=== PATIENT | female | born 1985 | race Caucasian/White ===

== ENCOUNTER 2019-03-09 05:00 | Inpatient (IN) | payer OTHER ==
[2019-03-09 06:28] LABS: BASO % 0.2 % (0-2.0); EOS % 2.1 % (0-4.5); HEMATOCRIT 32.8 % (32.4-45.2); HEMOGLOBIN 10.8 GM/dL (10.7-15.3); LYMPH % 22.7 % (8-40); MCH 25.3 pg (25.7-33.7); MCHC 33.1 g/dl (32.0-36.0); MEAN CELL VOLUME 76.6 fl (80-96); MONO % 6.9 % (3.8-10.2); NEUT % 68.1 % (42.8-82.8); PLATELET COUNT 278 K/MM3 (134-434); RBC 4.27 M/mm3 (3.60-5.2); RDW 15.5 % (11.6-15.6); WHITE BLOOD COUNT 9.4 K/mm3 (4.0-10.0)
[2019-03-09 06:34] VITALS: BMI 35.6
[2019-03-09 06:35] LABS: INR 0.92 (0.83-1.09); PROTHROMBIN TIME (PATIENT) 10.9 SEC (9.7-13.0)
[2019-03-09 06:38] LABS: ACTIVATED PTT 30.3 SECONDS (25.2-36.5)
[2019-03-09 07:02] LABS: BLOOD UREA NITROGEN 9.8 mg/dL (7-18); CALCIUM 8.4 mg/dL (8.5-10.1); CREATININE 0.4 mg/dL (0.55-1.3); POTASSIUM 4.1 mmol/L (3.5-5.1)
--- NOTE | 2019-03-09 08:08 | PN ---
Ante-Partal Exam - Subjective Subjective: Patient presenting with reports of mild spotting consistent with mucus plug. She denies LOF, and reports +FM and irregular contractions q 20mins. Patient reports that she stopped at [facility] L&D to make sure "everything was ok" since she has plan to see her OB tomorrow. Vital Signs: Vital Signs Temperature 98.1 F 03/09/19 06:00 Pulse Rate 87 03/09/19 07:00 Respiratory Rate 20 03/09/19 07:00 Blood Pressure 127/69 03/09/19 07:00 O2 Sat by Pulse Oximetry (%) Bleeding: No Headache: No Visual changes: No Right upper quadrant pain: No - Contractions Contractions: Yes Regularity: Irregular Intensity: Mild Monitor Mode: External - Exam during Labor Heart Rate: 125 Variability: Moderate Category: I Monitor Accelerations: Present Monitor Decelerations: None Exam: Vaginal Dilatation (cm): 1.5 Effacement (%): 30 Amniotic Membrane Status: Intact Presentation: Vertex Station: -3 Remarks: bedside sono performed: cephalic presentation, +FM, Amniotic fluid subjectively noted Labs reviewed - Assessment/Plan Assessment/Plan: Patient is a 33 y/o P2103 @ 41.1 wks by 09/10/18 sono at 15.3wks and JORGE of presenting for mucus plug/spotting, external patient. She reports being given a due date of 03/10/19 by her "MFM/Dynamite Packing Machine Feeder" as per patient. She reports coming to [facility] L&D fto "make sure everything was fine as she has been contraction for 2 weeks on and off." Patient was extensively monitored and evaluated in L&D. No cervical change noted and no active bleeding on exam, FHT is reassuring. Sono from 12/31/18 reviewed and WNL, along with all the available documentation brought by her. She reports undergoing a ultrasound evaluation on Sunday03/07/19 and "EFW 8lbs and fluid level normal." Patient reports follow up with OB attending tomorrow. Late 3rd trimester documentation is missing including sonos and labs. Available documentation is consistent with a uncomplicated . Patient was counseled at bedside regarding late term and induction of labor. Their respective risks and complications explained and she expressed understanding. Patient was offered induction of labor. Patient declined induction of labor as she desires to continue plan as formulated with her OB. Risks and complications of continuing late term stressed. She expressed understanding. Patient was instructed to present to her corresponding L&D following discharge in order to ensure continuity of care and appropriate care. Full antepartum/Labor precautions discussed. Patient expressed understanding and agreement. -D/C -Follow up at L&D in [place] in order to undergo evaluation and delivery decision making with personal OBGYN -return PRN
[2019-03-09] MEDS: ELECTROLYTE-148 SOLN 1,000 ML IV SCH (20:00)
--- NOTE | 2019-03-09 20:21 | HP ---
Past Medical History - Primary Care Physician PCP:: Kei Burgess - Admission Chief Complaint: Labor History of Present Illness: External patient returning after discharge early today. Presenting now in labor after evaluation at her corresponding hospital. History Source: Patient Limitations to Obtaining History: No Limitations - Past Medical History LENO SEWER: No: Alzheimer's, CVA, Dementia, Migraine, Multiple Sclerosis, Peripheral Neuropathy, Parkinson's, Seizure, Syncope, TIA, Vertigo, Other Cardiovascular: No: AFIB, Aneurysm, Aortic Insufficiency, Aortic Stenosis, CAD, CHF, Deep Vein Thrombosis, HTN, Hyperlipdemia, NC, Mitral Insufficiency, Mitral Stenosis, Murmur, Pulmonary Hypertension, Other Pulmonary: No: Asthma, Bronchitis, Cancer, COPD, O2 Dependent, Pneumonia, Previously Intubated, Pulmonary Embolus, Pulmonary Fibrosis, Sleep Apnea, Other Gastrointestinal: No: Ascites, Cancer, Constipation, Crohn's Disease, Diverticulitis, Diverticulosis, Esophageal Varices, Gastritis, GERD, GI Bleed, Hemorrhoids, Hiatal Hernia, Inflamatory Bowel Disease, Irritable Bowel Disease, Pancreatitis, Peptic Ulcer Disease, Ulcerative Colitis, Other Hepatobiliary: No: Cirrhosis, Cholelithiasis, Cholecystitis, Choledocholithiasis , Hepatitis A, Hepatitis B, Hepatitis C, Other Renal/: No: Renal Failure, Renal Inusuff, BPH, Cancer, Hematuria, Hemodialysis , Neurogenic Bladder, Renal Calculi, UTI, Other Reproductive: No: Ectopic , Endometriosis, Fibroids, PID, Polycystic Ovary Syndrome, Postmenopausal, Other ...: 5 ...Para: 3 ...Term: 1 ...: 1 ...Spon : 1 ...Induced : 0 ...Multiple Gestation: 0 ...EDC by Sono: 03/01/19 Heme/Onc: No: Anemia, B12 Deficiency, Bleeding Disorder, Cancer, Current Chemotherapy, Current Radiation Therapy, Hemochromatosis, Hypercoaguable State, Myeloproliferative Synd, Sickle Cell Disease, Sickle Cell Trait, Thrombocytopenia, Other Infectious Disease: No: AIDS, C-Diff, Herpes Zoster, HIV, MRSA, STD's, Tuberculosis, VREF, Other Psych: No: Addictions, Anxiety, Bipolar, Depression, Panic, Psychosis, Schizophrenia, Other Musculoskeletal: No: Bursitis, Chronic low back pain, Hemiparesis, Hemiplegia, Osteoarthritis, Paraplegia, Other Rheumatology: No: Fibromyalgia, Gout, Lupus, Rheumatoid Arthritis, Sarcoidosis, Vasculitis, Other ENT: No: Allergic Rhinitis, Sinusitis, Other Endocrine: No: Rugby's Disease, [place]'s Disease, Diabetes Insipidus, Diabetes Mellitus, Hyperparathyroidism, Hyperthyroidism, Hypothyroidism, Osteopenia, SIADH, Other Dermatology: No: Basal Cell, Cellulitis, Eczema, Melanoma, Psoriasis, Squamous Cell, Other - Past Surgical History Past Surgical History: No: None, AAA Repair, AICD, Amputation, Appendectomy, Arthrosocopy, AV Fistula/Graft, Bariatric Surgery, Breast Biopsy, Bypass, CABG, Carotid Endarterectomy, Cataract Removal, Cholecystectomy, Colectomy, Colonoscopy, Colostomy, Craniotomy, , Cystectomy, Hernia Repair, Hysterectomy, Ileal Conduit, Ileosotomy, Joint Replacement, Kidney Transplant, Laminectomy, Liver Transplant, Mastectomy, Nephrectomy, Oopherectomy, Orchiectomy, Permanent Pacemaker, Prostatectomy, Splenectomy, Stent, Thoracotomy , TURP, Tonsillectomy, Tubal Ligation, Upper Endoscopy, Valve Replacement, Vasectomy, Vein Stripping/Ligation Hx Myomectomy: No Hx Transabdominal Cerclage: No - Smoking History Smoking history: Never smoked Have you smoked in the past 12 months: No - Alcohol/Substance Use Hx Alcohol Use: No Home Medications - Allergies Allergies/Adverse Reactions: Allergies Allergy/AdvReac Type Severity Reaction Status Date / Time No Known Allergies Allergy Verified 03/09/19 05:46 - Home Medications Home Medications: Ambulatory Orders Pnv No.95/Ferrous Fum/Folic AC [ Vitamin Tablet] 1 each PO DAILY Family Medical History Family History: Unremarkable Review of Systems Unable to obtain ROS, reason: labor pain - Review of Systems Constitutional: denies: No Symptoms, Chills, Diaphoresis, Fever, Lethargy, Loss of Appetite, Malaise, Night Sweats, Unintentional Wgt. Loss, Weakness, Other Eyes: denies: No Symptoms, Blind Spots, Blurred Vision, Double Vision, Eye Pain , Floaters, Photophobia, Recent Change in Vision, Other HENT: denies: No Symptoms, Difficult Swallowing, Ear Discharge, Ear Pain, Epistaxis, Gingival Bleeding, Hearing Loss, Mouth Swelling, Nasal Congestion, Ocular Prosthesis, Throat Pain, Toothache, Ringing in Ears, Other Neck: denies: No Symptoms, Decreased ROM, Lumps, Pain on Movement, Stiffness, Swollen Glands, Tenderness, Other Cardiovascular: denies: No Symptoms, Chest Pain, Edema, Palpitations, Shortness of Breath, Other Respiratory: denies: No Symptoms, Cough, Exercise Intolerance, Hemoptysis, Orthopnea, PND, Snoring, SOB, SOB on Exertion, Wheezing, Other Gastrointestinal: denies: No Symptoms, Abdominal Pain, Bloating, Constipation, Diarrhea, Dysphagia, Indigestion, Melena, Nausea, Rectal Bleeding, Vomiting, Vomiting Blood, Other Genitourinary: denies: No Symptoms, Burning, Discharge, Dysuria, Flank Pain, Frequency, Hematuria, Incontinence, Lesions, Menses, Pain, Testicular Mass, Testicular Pain, Testicular Swelling, Urgency, Vaginal Bleeding, Other Breasts: denies: No Symptoms Reported, See HPI, Breast Implants, Discharge from Nipple, Lumps, Pain, Skin Changes, Other Musculoskeletal: denies: No Symptoms, Back Pain, Crepitus, Decreased ROM, Extremity Pain, Joint Pain, Joint Swelling, Muscle Pain, Muscle Cramps, Muscle Weakness, Other Integumentary: denies: No Symptoms, Blister, Bruising, Change in Color, Eczema, Erythema, Incision, Lesions, Lump, Pallor, Pruritis, Rash, Wound, Other Neurological: denies: No Symptoms, Change in LOC, Change in Speech, Confusion, Dizziness, Headache, Incoordination, Numbness, Parasthesia, Pre-Existing Deficit , Seizure, Syncope, Tremors, Unsteady Gait, Weakness, Other Endocrine: denies: No Symptoms, Excessive Sweating, Flushing, Increased Hunger, Increased Thirst, Intolerance to Cold, Intolerance to Heat, Unexplained Weight Gain, Unexplained Weight Loss, Other Hematology/Lymphatic: denies: No Symptoms, Easily Bruised, Excessive Bleeding, Swollen Glands, Other Psychiatric: denies: No Symptoms, Altered Sleep Pattern, Anxiety, Depression, Hallucinations, Panic, Paranoia, Suicidal, Other Physical Exam - Maternity Vital Signs: Vital Signs Temperature 98.3 F 03/09/19 19:18 Pulse Rate 98 H 03/09/19 19:18 Respiratory Rate 20 03/09/19 19:18 Blood Pressure 128/74 03/09/19 19:18 O2 Sat by Pulse Oximetry (%) Constitutional: Yes: Well Nourished HENT: Yes: Atraumatic Neck: Yes: Supple Cardiovascular: Yes: Regular Rate and Rhythm Breast(s): Yes: Other (deferred) - Abdominal Exam/OB Number of Fetuses: Single Presentation: Vertex Contractions: Yes Regularity: Regular Intensity: Mod/Strong Monitor Mode: External Heart Rate (range): 135 Category: I Accelerations: Uniform Decelerations: None - Vaginal Exam/OB Vaginal Bleediing: No Speculum Exam: No Dilatation (cm): 4 Effacement (%): 60 Amniotic Membrane Status: Intact Presentation: Vertex/Position Station: -3 - Physical Exam Musculoskeletal: Yes: WNL Extremities: Yes: WNL Edema: Yes Integumentary: Yes: WNL Deep Tendon Reflex Grade: Normal +2 ...Motor Strength: WNL Psychiatric: Yes: WNL, Alert, Oriented - Labs Lab Results: CBC, BMP 03/09/19 06:05 03/09/19 06:05 Imaging - Results Ultrasound: Report Reviewed Assessment/Plan 33 y/o @ 41.1wks, active labor, external patient and partial records reviewed. No GBS available and uncomplicated with negative testing. Sono done today reviewed and all questions answered. Patient desires IV pain control. -Stadol -Expectant management -re-evaluate accordingly -GBS prophylaxis as per protocol.
[2019-03-09] MEDS ORDERED: AMPICILLIN - 2 GM in SODIUM CHLORIDE 100 ML IVPB ONE (20:34)
--- NOTE | 2019-03-09 22:01 | PN ---
Ante-Partal Exam - Subjective Subjective: Patient evaluated for progression of labor Vital Signs: Vital Signs Temperature 98.3 F 03/09/19 19:18 Pulse Rate 79 03/09/19 20:00 Respiratory Rate 18 03/09/19 20:00 Blood Pressure 122/77 03/09/19 20:00 O2 Sat by Pulse Oximetry (%) Bleeding: No Headache: No Visual changes: No Right upper quadrant pain: No - Contractions Contractions: Yes Regularity: Irregular Monitor Mode: External - Exam during Labor Heart Rate: 120 Variability: Moderate Category: I Monitor Accelerations: Absent Monitor Decelerations: None Exam: Vaginal Dilatation (cm): 5 Effacement (%): 70 Amniotic Membrane Status: Intact Presentation: Vertex (asynclitic) Station: -3 Remarks: internal digital rotation attempted - Assessment/Plan Assessment/Plan: re-evaluate in 1-2hrs and consider AROM and IUP placement
--- NOTE | 2019-03-09 23:31 | PN ---
Ante-Partal Exam - Subjective Subjective: Patient evaluated for pain and progression of labor Vital Signs: Vital Signs Temperature 98.3 F 03/09/19 19:44 Pulse Rate 79 03/09/19 20:00 Respiratory Rate 18 03/09/19 20:00 Blood Pressure 122/77 03/09/19 20:00 O2 Sat by Pulse Oximetry (%) Bleeding: Yes (moderate) Headache: No Visual changes: No Right upper quadrant pain: No - Contractions Contractions: Yes Regularity: Irregular (unable to trace appropriately) Intensity: Mod/Strong Monitor Mode: External - Exam during Labor Heart Rate: 125 Variability: Moderate Category: I Monitor Accelerations: Present Monitor Decelerations: None Exam: Vaginal (IUPC placed) Dilatation (cm): 5 Effacement (%): 60 Amniotic Membrane Status: Ruptured Amniotic Fluid: Blood Stained Presentation: Vertex Station: -3 Remarks: asynclitic - Assessment/Plan Assessment/Plan: 33 y/o P2103 @ 41.1wks, active labor, FHT reactive, /P AROM and IUPC in place. Desiring epidural -Epidural is OK -Re-evaluate accordingly
[2019-03-10] MEDS: AMPICILLIN - 1 GM in SODIUM CHLORIDE 100 ML IVPB SCH ×3 (00:35→19:26)
[2019-03-10] MEDS: FENTANYL/BUPIVACAINE/NS/PF - PCEA - 50 ML DISP.SYRIN EP SCH (00:40)
[2019-03-10] MEDS ORDERED: NALOXONE HCL 0.4 MG/ML VIAL IVPUSH PRN (01:09)
[2019-03-10] MEDS: OXYTOCIN 30 UNITS in 0.9% NS 30 UNIT/500 ML INFUS.BAG IVPB SCH (01:25)
[2019-03-10] MEDS ORDERED: BUTORPHANOL TARTRATE 1 MG/ML VIAL IVPB ONE (01:57)
--- NOTE | 2019-03-10 03:27 | PN ---
Ante-Partal Exam - Subjective Subjective: Patient evaluated for pain and pressure. Vital Signs: Vital Signs Temperature 98.1 F 03/10/19 02:00 Pulse Rate 80 03/10/19 01:40 Respiratory Rate 18 03/10/19 01:40 Blood Pressure 118/64 03/10/19 01:40 O2 Sat by Pulse Oximetry (%) 99 03/10/19 01:40 Bleeding: Yes (bloody show) Headache: No Visual changes: No Right upper quadrant pain: No - Contractions Contractions: Yes Regularity: Regular Intensity: Mild Monitor Mode: External - Exam during Labor Heart Rate: 150 Variability: Moderate Category: I (tracing non-continuous during psuhing trial) Monitor Accelerations: Present Monitor Decelerations: None Exam: Vaginal Dilatation (cm): 9.5 Effacement (%): 100 Station: 0 (asynclitic) - Assessment/Plan Assessment/Plan: Pasive descent D/C epidural Anticipate VD
[2019-03-10] MEDS ORDERED: WITCH HAZEL 50% (TUCKS) 40 PAD/JAR PAD TP PRN (04:36)
[2019-03-10] MEDS ORDERED: BENZOCAINE 28 GM HEMORRHOIDAL OINTMENT TP PRN (04:36)
[2019-03-10] MEDS ORDERED: BISACODYL 10 MG SUPP.RECT RC PRN (04:36)
[2019-03-10] MEDS ORDERED: BENZOCAINE 20% 57 GM BOTTLE TP PRN (04:36)
--- NOTE | 2019-03-10 04:36 | PN ---
Delivery - Delivery Type of Anesthesia: Epidural Episiotomy/Laceration: None EBL (cc): 300 Delivery, Single - Stages of Labor Placenta: Yes: Spontaneous - Condition of Infant Service Station Equipment Mechanic/Primary Care Pediatrician Present: No Infant Gender: Female Position: OA - Feeding Plan Initial Plan: Elected not to breastfeed exclusively throughout hospitalization Remarks - Remarks Remarks: Infant's head delivered with maternal expulsive efforts OA and restituted to NITESH. Tight nuchal cord x 1 reduced and shoulders delivered without difficulty. Cord clamped after delay and samples for gases and blood obtained. Placenta delivered spontaneously and intact, 3VC. Exam revealed no laceration and mild atony. Fundal massage and prophylactic misoprostol administered TX. Sponge/ instrument count correct x 2 and confirmed by nurse.
[2019-03-10] MEDS ORDERED: MISOPROSTOL 100 MCG TABLET PV ONE (04:38)
[2019-03-10] MEDS: IBUPROFEN 600 MG TABLET (FP) PO PRN ×2 (09:12→17:56)
[2019-03-10] MEDS: ACETAMINOPHEN 325 MG TABLET (FP) PO PRN ×2 (09:13→17:57)
[2019-03-11] MEDS: FENTANYL/BUPIVACAINE/NS/PF - PCEA - 50 ML DISP.SYRIN EP SCH (07:29)
[2019-03-11] MEDS: AMPICILLIN - 1 GM in SODIUM CHLORIDE 100 ML IVPB SCH (07:29)
[2019-03-11] MEDS: IBUPROFEN 600 MG TABLET (FP) PO PRN (08:19)
[2019-03-11] MEDS: ACETAMINOPHEN 325 MG TABLET (FP) PO PRN (08:19)
--- NOTE | 2019-03-11 09:02 | PN ---
Post Progress Note - Subjective Subjective: 33 yo Para 4 status post vaginal delivery, seen and evaluated. Doing well. Post Day: 1 Type of Delivery: Vital Signs: Vital Signs Temperature 98.3 F 03/10/19 21:00 Pulse Rate 70 03/10/19 21:00 Respiratory Rate 20 03/10/19 21:00 Blood Pressure 122/66 03/10/19 21:00 O2 Sat by Pulse Oximetry (%) 99 03/10/19 01:40 Breast Exam: Yes: Soft Uterus: Yes: Fundus Firm Abdomen/GI: Yes: Abdomen soft, Tolerating PO Lochia: Yes: Rubra Lochia, amount: Moderate Extremities: Yes: Calves non-tender Perineum: Yes: Intact Activity: Ambulating - Labs Labs: CBC WBC 9.4 K/mm3 (4.0-10.0) 03/09/19 06:05 RBC 4.27 M/mm3 (3.60-5.2) 03/09/19 06:05 Hgb 10.8 GM/dL (10.7-15.3) 03/09/19 06:05 Hct 32.8 % (32.4-45.2) 03/09/19 06:05 MCV 76.6 fl (80-96) L 03/09/19 06:05 MCH 25.3 pg (25.7-33.7) L 03/09/19 06:05 MCHC 33.1 g/dl (32.0-36.0) 03/09/19 06:05 RDW 15.5 % (11.6-15.6) 03/09/19 06:05 Plt Count 278 K/MM3 (134-434) 03/09/19 06:05 MPV 8.0 fl (7.5-11.1) 03/09/19 06:05 Absolute Neuts (auto) 6.4 K/mm3 (1.5-8.0) 03/09/19 06:05 Neutrophils % 68.1 % (42.8-82.8) 03/09/19 06:05 Lymphocytes % 22.7 % (8-40) 03/09/19 06:05 Monocytes % 6.9 % (3.8-10.2) 03/09/19 06:05 Eosinophils % 2.1 % (0-4.5) 03/09/19 06:05 Basophils % 0.2 % (0-2.0) 03/09/19 06:05 Nucleated RBC % 0 % (0-0) 03/09/19 06:05 Problem List - Problems (1) Status post normal vaginal delivery Problems reviewed: Yes Code(s): [id number] - Assessment/Plan Status post vaginal delivery Stable Continue routine care
[2019-03-11 09:14] LABS: BASO % 0.2 % (0-2.0); EOS % 3.2 % (0-4.5); HEMATOCRIT 31.3 % (32.4-45.2); HEMOGLOBIN 10.4 GM/dL (10.7-15.3); LYMPH % 19.1 % (8-40); MCH 25.4 pg (25.7-33.7); MCHC 33.1 g/dl (32.0-36.0); MEAN CELL VOLUME 76.6 fl (80-96); MEAN PLT VOLUME 7.7 fl (7.5-11.1); MONO % 5.3 % (3.8-10.2); NEUT % 72.2 % (42.8-82.8); PLATELET COUNT 277 K/MM3 (134-434); RBC 4.09 M/mm3 (3.60-5.2); RDW 16.1 % (11.6-15.6); WHITE BLOOD COUNT 9.8 K/mm3 (4.0-10.0)
[2019-03-11] MEDS ORDERED: diphenhydrAMINE HCL 25 MG CAPSULE (FP) PO ONE (18:30)
[2019-03-11] MEDS: OXYTOCIN 20 UNITS in 0.9% NS 20 UNIT/1,000 ML INFUS.BAG IV SCH (19:40)
[2019-03-11] MEDS: ELECTROLYTE-148 SOLN 1,000 ML IV SCH (19:41)
[2019-03-11] MEDS: OXYTOCIN 30 UNITS in 0.9% NS 30 UNIT/500 ML INFUS.BAG IVPB SCH (19:41)
[2019-03-11] MEDS ORDERED: SENNOSIDES/DOCUSATE COMBO (SENNA PLUS) TABLET (UD) PO PRN (22:00)
--- NOTE | 2019-03-12 06:08 | DS ---
Physical Exam-TUB PULLER Vital Signs: Vital Signs Temperature 98.5 F 03/11/19 20:39 Pulse Rate 68 03/11/19 20:39 Respiratory Rate 20 03/11/19 20:39 Blood Pressure 117/73 03/11/19 20:39 O2 Sat by Pulse Oximetry (%) 99 03/10/19 01:40 Constitutional: Yes: Well Nourished, Other (c/o rash on her body , erythema around her chest abdomen & lfront of thighs . less than last evenning seen by me . still present itching less) Eyes: Yes: WNL HENT: Yes: WNL Neck: Yes: WNL Cardiovascular: Yes: WNL Respiratory: Yes: WNL Gastrointestinal: Yes: WNL Renal/: Yes: WNL ....Post : Yes: Uterus firm, Uterus non-tender, Moderate lochia rubra ( perineum intact) Breast(s): Yes: WNL (breast not engorged breast & bottle feeding) Musculoskeletal: Yes: WNL Extremities: Yes: WNL. No: Calf Tenderness Edema: LLE: Trace, RLE: Trace Integumentary: Yes: Erythema (skin) Neurological: Yes: WNL ...Motor Strength: WNL Psychiatric: Yes: WNL, Alert, Oriented Labs: CBC, BMP 03/11/19 08:48 03/09/19 06:05 Delivery - Delivery Type of Anesthesia: Epidural Episiotomy/Laceration: None EBL (cc): 300 Delivery, Single - Stages of Labor Date 1st Stage Initiatied: 03/09/19 Time 1st Stage Initiated: 20:00 Date 2nd Stage Initiated: 03/10/19 Time 2nd Stage Initiated: 03:45 Date of Delivery: 03/10/19 Time of Delivery: 04:11 Time Placenta Delivered: 04:15 Placenta: Yes: Spontaneous - Condition of Kiln Fireman/Signals Officer Present: No Infant Gender: Female Weight: 7 lb 2 oz Position: OA Total Hours ROM (Hrs/Mins): 6H46m - 1 Minute Total Score: 9 5 Minutes Total Score: 9 - Feeding Plan Initial Plan: Elected not to breastfeed exclusively throughout hospitalization Remarks - Remarks Remarks: ppd #2 stable skin rash complained last evening to nurse, unable to find cause . pt has taken tylenol, or motrin & penicillin in past since pain scale 3-4/10 for cramps i recommended avoid all medicines Benadryl 50 mg po given last night , will repeat 25 mg po one more dose in AM pt is instructed if rash still persistent , she can take po clartin otc once a day prn discharge today Discharge Summary Problems reviewed: Yes Reason For Visit: LABOR Current Active Problems Status post normal vaginal delivery (Acute) Procedures: Principal: Hospital Course: allergic reaction , cause unknown Health Concerns: none Plan of Treatment: as directed Goals: maternal & well being Condition: Stable - Instructions Diet, Activity, Other Instructions: DISCHARGED TO [facility]. GO DIRECTLY TO [facility] NOW TO BE EVALUATED BY YOUR PROVIDER FOR INDUCTION OF LABOR OR DISCHARGE. IF YOU HAVE ANY QUESTIONS ABOUT YOUR EVALUATION AT THIS HOSPITAL, CALL [phone] Referrals: Kei Burgess MD [Staff Physician] - Disposition: HOME - Home Medications Comprehensive Discharge Medication List: Ambulatory Orders Pnv No.95/Ferrous Fum/Folic AC [ Vitamin Tablet] 1 each PO DAILY Ibuprofen 600 mg PO Q6H PRN #30 tablet 03/10/19
[2019-03-12] MEDS ORDERED: diphenhydrAMINE HCL 25 MG CAPSULE (FP) PO ONE (07:00)
[2019-03-12] MEDS: ACETAMINOPHEN 325 MG TABLET (FP) PO PRN (07:52)
[2019-03-12 09:29] VITALS: BP 117/65; PULSE 61; TEMP 98.1
== END 2019-03-12 12:45 | disposition home or self-care (01) | DRG 560 ==
LOC: JDEL 05:00 → JLDR 05:45 → UNDOADMIN 05:45 → EDBD 05:45 → JDEL 08:25 → JLDR 18:55 → J3W 03-10 05:35
PROVIDERS: ADMIT Student in an Organized Health Care Education/Training Program; ATTEND Student in an Organized Health Care Education/Training Program
PROC: 10E0XZZ Delivery of Products of Conception, External Approach (ICD-10-PCS; principal; 2019-03-10)
PROC: 0W8NXZZ Division of Female Perineum, External Approach (ICD-10-PCS; 2019-03-10)
DX: O48.0 Post-term pregnancy (principal); O90.89 Other complications of the puerperium, not elsewhere classified; R21 Rash and other nonspecific skin eruption; Z3A.41 41 weeks gestation of pregnancy; Z37.0 Single live birth
CPT/HCPCS: 36415; 36600; 59409; 80048; 82803; 85025; 85610; 85730; 86593; 86850; 86900; 86901; 87389